=== PATIENT | male | born 2000 | race Caucasian/White ===

== ENCOUNTER 2021-03-10 20:12 | Emergency (ER) | payer OTHER ==
[~2021-03-10] VITALS: Ht 180.3 cm; Wt 61.4 kg
[2021-03-10 20:43] VITALS: BP 157/76
== END 2021-03-11 01:17 | disposition home or self-care (01) ==
LOC: ER 03-11 01:04
DX: S39.012A Strain of muscle, fascia and tendon of lower back, initial encounter (principal); V87.7XXA Person injured in collision between other specified motor vehicles (traffic), initial encounter; Y93.89 Activity, other specified; Y92.488 Other paved roadways as the place of occurrence of the external cause; Y99.8 Other external cause status
CPT/HCPCS: 99282